=== PATIENT | male | born 1980 | race Caucasian/White ===

== ENCOUNTER 2017-07-12 14:21 | Emergency (ER) | payer OTHER ==
[2017-07-12] MEDS ORDERED: Ketorolac INJ* 60 MG/2 ML VIAL IM ONE (15:11)
--- NOTE | 2017-07-12 15:35 | RAD ---
HISTORY: Knee pain COMPARISONS: None VIEWS: 6, Frontal, lateral, axial, and oblique views of the left knee FINDINGS: BONE DENSITY: Normal. BONES: There is no displaced fracture. JOINTS: There is no arthropathy. There is no suprapatellar joint effusion or lipohemarthrosis. ALIGNMENT: There is no dislocation. SOFT TISSUES: Unremarkable. OTHER FINDINGS: None. IMPRESSION: NO ACUTE OSSEOUS INJURY. IF SYMPTOMS PERSIST, RECOMMEND REPEAT IMAGING.
[2017-07-12] MEDS ORDERED: Dexamethasone IV* 4 MG/ML 1 ML (4 MG) IM ONE (16:33)
[2017-07-12 16:59] VITALS: BP 114/72
--- NOTE | 2017-07-12 19:04 | ED ---
Dalila Kumar Edward, scribed for Henry Irwin MD on 07/12/17 at 1504 . Lower Extremity - HPI Summary HPI Summary: 37 y/o male presents to the ED c/o sudden onset, severe L knee pain starting earlier today. The pain is located just below the knee. The pt was sitting on his L leg when the pain started. The pain started as a burning cramp. It is alleviated with bending and lifting the leg. The pain is aggravated with straightening the leg. - History of Current Complaint Chief Complaint: EDExtremityLower Stated Complaint: LT LOWER EXTREMITY PAIN Time Seen by Provider: 07/12/17 14:57 Hx Obtained From: Patient Mechanism Of Injury: Other - Sitting on the knee and moved Onset of Pain: Immediate Severity Currently: Moderate Pain Intensity: 7 Pain Scale Used: 0-10 Numeric Timing: Constant Location: Is Discrete @ - Below the L knee Character Of Pain: Burning - cramp Associated Signs And Symptoms: Positive: Knee Pain Aggravating Factor(s): Other - straightening Alleviating Factor(s): Elevation - and bending - Allergies/Home Medications Allergies/Adverse Reactions: Allergies Allergy/AdvReac Type Severity Reaction Status Date / Time No Known Allergies Allergy Verified 08/31/16 09:34 PMH/Surg Hx/FS Hx/Imm Hx Previously Healthy: No Endocrine/Hematology History: Denies: Hx Anemia, Hx Unexplained Bleeding Cardiovascular History: Denies: Hx Aneurysm, Hx Angina, Hx Angioplasty, Hx Auto Implanted Cardiovert Defib, Hx Cardiac Arrest, Hx Cardiomegaly, Hx Congenital Heart Disease, Hx Congestive Heart Failure, Hx Coronary Artery Disease, Hx Embolism, Hx Hypercholesterolemia, Hx Hypotension, Hx Hypertension, Hx Pacemaker/ICD, Hx Peripheral Vascular Disease, Hx Rheumatic Fever, Hx Syncope, Hx Valvular Heart Disease, Other Cardiovascular Problems/Disorders Respiratory History: Denies: Hx Asthma, Hx Chronic Obstructive Pulmonary Disease (COPD) GI History: Denies: Other GI Disorders History: Denies: Hx Kidney Infection, Hx Kidney Stones, Hx Renal Disease, Other Problems/Disorders Musculoskeletal History: Denies: Hx Arthritis Sensory History: Denies: Hx Cataracts, Hx Eye Injury, Hx Eye Prosthesis, Hx Glaucoma, Hx Legally Blind, Hx Macular Degeneration, Hx Vision Problem, Hx Deafness, Hx Hearing Aid, Hx Hearing Problem, Other Sensory Impairments Opthamlomology History: Denies: Hx Cataracts, Hx Eye Injury, Hx Eye Prosthesis, Hx Glaucoma, Hx Legally Blind, Hx Macular Degeneration, Hx Vision Problem, Other Sensory Impairments Neurological History: Denies: Hx Headaches, Other Neuro Impairments/Disorders Psychiatric History: Reports: Hx Substance Abuse Denies: Hx Anxiety, Hx Eating Disorder, Hx of Violent Episodes Against Others - Surgical History Surgery Procedure, Year, and Place: Inguinal Hernia Repair Infectious Disease History: No Infectious Disease History: Denies: Hx Clostridium Difficile, Hx Hepatitis, Hx Human Immunodeficiency Virus (HIV), Hx of Known/Suspected MRSA, Hx Shingles, Hx Tuberculosis, Hx Known/ Suspected VRE, Hx Known/Suspected VRSA, History Other Infectious Disease, Traveled Outside the [place] in Last 30 Days - Family History Known Family History: Negative: Blood Disorder - Social History Alcohol Use: Rare Alcohol Amount: 1-2 daily Hx Substance Use: Yes Substance Use Type: Reports: Heroin Substance Use Comment - Amount & Last Used: states former user - Daily use Hx Tobacco Use: Yes Smoking Status (MU): Heavy Every Day Tobacco Smoker Type: Cigarettes Amount Used/How Often: 1/2 ppd Have You Smoked in the Last Year: Yes Review of Systems Constitutional: Negative Eyes: Negative ENT: Negative Cardiovascular: Negative Respiratory: Negative Gastrointestinal: Negative Genitourinary: Negative Positive: Arthralgia - L knee pain Skin: Negative Neurological: Negative Psychological: Normal All Other Systems Reviewed And Are Negative: Yes Physical Exam - Summary Physical Exam Summary: VITAL SIGNS: Reviewed. GENERAL: ~Patient is a well-developed and nourished male who is lying comfortable in the stretcher. ~Patient is not in any acute respiratory distress. HEAD AND FACE: No signs of trauma. ~No ecchymosis, hematomas or skull depressions. No sinus tenderness. EYES: PERRLA, EOMI x 2, No injected conjunctiva, no nystagmus. EARS: Hearing grossly intact. Ear canals and tympanic membranes are within normal limits. MOUTH: Oropharynx within normal limits. NECK: Supple, trachea is midline, no adenopathy, no JVD, no carotid bruit, no c- spine tenderness, neck with full ROM. CHEST: Symmetric, no tenderness at palpation LUNGS: Clear to auscultation bilaterally. No wheezing or crackles. CVS: Regular rate and rhythm, S1 and S2 present, no murmurs or gallops appreciated. ABDOMEN: Soft, non-tender. No signs of distention. No rebound no guarding, and no masses palpated. Bowel sounds are normal. EXTREMITIES: Tenderness @ lateral aspect of L knee. Decreased ROM secondary to pain with no deformities, no ecchymosis and no erythema NEURO: Alert and oriented x 3. No acute neurological deficits. Speech is normal and follows commands. SKIN: Dry and warm Triage Information Reviewed: Yes Vital Signs On Initial Exam: Initial Vitals Temp Pulse Resp BP Pulse Ox 98.4 F 72 18 117/76 95 07/12/17 14:33 07/12/17 14:33 07/12/17 14:33 07/12/17 14:33 07/12/17 14:33 Vital Signs Reviewed: Yes - [place] Coma Scale Coma Scale Total: 15 Diagnostics - Vital Signs Vital Signs Temp Pulse Resp BP Pulse Ox 07/12/17 14:33 98.4 F 72 18 117/76 95 - Laboratory Lab Statement: Any lab studies that have been ordered have been reviewed, and results considered in the medical decision making process. - Radiology KNEE XR Xray Interpretation: No Acute Changes - NO ACUTE OSSEOUS INJURY. IF SYMPTOMS PERSIST, RECOMMEND REPEAT IMAGING. Radiology Interpretation Completed By: Radiologist Re-Evaluation - Re-Evaluation 1 Re-Evaluation Time: 16:30 Comment: Discuss imaging and test results Lower Extremity Course/Dx - Course Assessment/Plan: 37 y/o male presents to the ED c/o sudden onset, severe L knee pain starting earlier today. The pain is located just below the knee. The pt was sitting on his L leg when the pain started. The pain started as a burning cramp. It is alleviated with bending and lifting the leg. The pain is aggravated with straightening the leg. KNEE XR SHOWS NO ACUTE OSSEOUS INJURY. IF SYMPTOMS PERSIST, RECOMMEND REPEAT IMAGING. XR knee negative for fracture discloation. I believe pt symptoms are secondary to possible meniscal or lateral ligament injury. Therefore pt was placed in a knee immobilizer and will be d/c home with f/u with orthopedics. - Diagnoses Differential Diagnosis/HQI/PQRI: Positive: Bursitis, Contusion, Dislocation, Fracture (Closed) Provider Diagnoses: Knee pain Discharge - Discharge Plan Condition: Stable Disposition: HOME Patient Education Materials: Knee Pain (ED) Referrals: [facility] – [place] PHYSICIAN REFERRAL [Outside] - 5 Days (PLEASE F/U IN 3-5 DAYS) Pipe Liu MD [Medical Doctor] - 5 Days (PLEASE F/U IN 3-5 DAYS) The documentation as recorded by the scribeDalila Edward accurately reflects the service I personally performed and the decisions made by me, Henry Irwin MD.
== END 2017-07-12 16:58 | disposition home or self-care (01) ==
LOC: ED 14:21
DX: M25.562 Pain in left knee (principal); F17.210 Nicotine dependence, cigarettes, uncomplicated
CPT/HCPCS: 96372; 99282; J1100; J1885

== ENCOUNTER 2018-03-28 13:50 | Emergency (ER) | payer SELFPAY ==
[2018-03-28 14:00] VITALS: BP 109/61
--- NOTE | 2018-03-28 14:32 | UC ---
Knee Pain HPI - HPI Summary HPI Summary: body aches headaches feverish last week, now right knee is tender and swollen no injury - History of Current Complaint Chief Complaint: UCLowerExtremity Stated Complaint: KNEE PAIN,TIRED Time Seen by Provider: 03/28/18 14:13 Hx Obtained From: Patient Onset/Duration: Gradual Onset, Lasting Days - 7-8 days Pain Intensity: 6 Pain Scale Used: 0-10 Numeric Character: Aching, Throbbing, Spasmodic Aggravating Factor(s): Movement Associated Signs And Symptoms: Positive: Swelling - Allergies/Home Medications Allergies/Adverse Reactions: Allergies Allergy/AdvReac Type Severity Reaction Status Date / Time No Known Allergies Allergy Verified 03/28/18 14:00 Home Medications: Home Medications Buprenorphine HCl/Naloxone HCl [Suboxone 8 mg-2 mg Sl Film] 1 mis SL 03/28/18 [ History] Gabapentin [Neurontin] 200 mg PO 03/28/18 [History] PMH/Surg Hx/FS Hx/Imm Hx Previously Healthy: No - opiate abuse 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 - Surgical History Surgical History: Yes Surgery Procedure, Year, and Place: Inguinal Hernia Repair - Family History Known Family History: Negative: Blood Disorder - Social History Occupation: Employed Full-time Lives: With Family Alcohol Use: Daily Alcohol Amount: 1-2 daily Substance Use Type: None Substance Use Comment - Amount & Last Used: no longer Smoking Status (MU): Light Every Day Tobacco Smoker Type: Cigarettes Amount Used/How Often: 1/2 ppd Have You Smoked in the Last Year: Yes When Did the Patient Quit Smoking/Using Tobacco: 3-4 months ago Household Exposure Type: Cigarettes - Immunization History Most Recent Influenza Vaccination: patient unable to recall Most Recent Tetanus Shot: patient unable to recall Most Recent Pneumonia Vaccination: pt unable to recall Review of Systems Constitutional: Negative Skin: Negative Eyes: Negative ENT: Negative Respiratory: Negative Cardiovascular: Negative Gastrointestinal: Negative Genitourinary: Negative Motor: Negative Neurovascular: Negative Musculoskeletal: Arthralgia - swollen tender right knee, Edema - right knee Neurological: Negative Psychological: Negative Is Patient Immunocompromised?: No All Other Systems Reviewed And Are Negative: Yes Physical Exam Triage Information Reviewed: Yes Appearance: Well-Appearing, No Pain Distress, Well-Nourished Vital Signs: Initial Vital Signs Temp 98.6 F 03/28/18 13:56 Pulse 78 03/28/18 13:56 Resp 18 03/28/18 13:56 BP 109/61 03/28/18 13:56 Pulse Ox 96 03/28/18 13:56 Vital Signs Reviewed: Yes Eye Exam: Normal Eyes: Positive: Conjunctiva Clear ENT Exam: Normal ENT: Positive: Normal ENT inspection, Hearing grossly normal, Pharynx normal. Negative: Nasal congestion, TMs normal, Trismus, Muffled voice, Hoarse voice Dental Exam: Normal Neck exam: Normal Neck: Positive: Supple, Nontender, No Lymphadenopathy Respiratory Exam: Normal Respiratory: Positive: Chest non-tender, Lungs clear, Normal breath sounds, No respiratory distress, No accessory muscle use Cardiovascular Exam: Normal Cardiovascular: Positive: RRR, No Murmur, Pulses Normal, Brisk Capillary Refill Abdominal Exam: Normal Abdomen Description: Positive: Nontender, No Organomegaly, Soft Musculoskeletal Exam: Other Musculoskeletal: Positive: Strength Intact, ROM Intact, Edema @ - right knee Neurological Exam: Normal Neurological: Positive: Alert, Muscle Tone Normal Psychological Exam: Normal Psychological: Positive: Normal Response To Family, Age Appropriate Behavior Skin Exam: Normal Knee Pain Course/Dx - Course Course Of Treatment: start ceftin, lab studies follow with pcp - Differential Dx/Diagnosis Provider Diagnoses: swollen right knee, lyme Discharge - Sign-Out/Discharge Documenting (check all that apply): Patient Departure - Discharge Plan Condition: Stable Disposition: HOME Prescriptions: Cefuroxime 500 MG(NF) 500 mg PO BID #40 tab Patient Education Materials: Lyme Disease (ED), Swollen Knee Joint (ED), Fatigue (ED) Forms: *Work Release Referrals: No Primary Care Phys,NOPCP [Primary Care Provider] - Additional Instructions: Follow with your providers at the [facility] this week - Billing Disposition and Condition Condition: STABLE Disposition: Home
[2018-03-29 13:42] LABS: ABS Basophils 0.1 10^3/ul (0-0.2); ABS Eosinophils 0.2 10^3/ul (0-0.6); ABS Lymphocytes 1.6 10^3/ul (1.0-4.8); ABS Monocytes 0.4 10^3/ul (0-0.8); ABS Neutrophils 3.6 10^3/ul (1.5-7.7); ABS Nucleated RBC 0 10^3/ul; Eosinophil % 3.7 % (0-6); Hematocrit 43 % (42-52); Hemoglobin 14.7 g/dl (14.0-18.0); Lymphocyte % 27.7 % (25-47); Mean Corpuscular HGB Conc 34 g/dl (31-36); Mean Corpuscular Hemoglobin 31 pg (27-31); Mean Corpuscular Volume 91 fL (80-94); Mean Platelet Volume 8.6 um3 (7.4-10.4); Nucleated Red Blood Cells % 0.2; Platelet Count 200 10^3/ul (150-450); Red Blood Count 4.73 10^6/ul (4.00-5.40); Red Cell Distribution Width 13 % (10.5-15); White Blood Count 5.8 10^3/ul (3.5-10.8)
[2018-03-29 14:13] LABS: EGFR Non-African American 87.8 (>60)
== END 2018-03-28 14:44 | disposition home or self-care (01) ==
LOC: UCEAST 13:50
DX: M25.461 Effusion, right knee (principal); A69.20 Lyme disease, unspecified; Z87.891 Personal history of nicotine dependence
CPT/HCPCS: 36415; 80053; 85025; 86140; 86618; 99212; G0463

== ENCOUNTER 2018-04-04 16:11 | Emergency (ER) | payer OTHER ==
[2018-04-04 16:36] VITALS: BP 106/68
--- NOTE | 2018-04-04 17:01 | UC ---
Complaint Male HPI - HPI Summary HPI Summary: This is Delaney santiago, documenting for attending, Mayela Houston MD. This patient is a 38 year old M presenting to [facility] with a chief complaint of progressively worsening burning pain with urination immediately after intercourse last evening. Pain is 8/10 upon triage. Reports redness of head of penis and blood at the opening of the urethra. States he did not experience these symptoms prior to intercourse. Benjamin green/yellow discharge, fever, chills , back pain, and abdominal pain. States he has been with current partner for 10 years. States his girlfriend is not having an symptoms currently. - History of Current Complaint Chief Complaint: UCGU Stated Complaint: BURNING URINATION Time Seen by Provider: 04/04/18 16:41 Hx Obtained From: Patient Onset/Duration: Lasting Hours Timing: Constant Pain Intensity: 8 Pain Scale Used: 0-10 Numeric Location: Penis Character: Burning Associated Signs And Symptoms: Positive: Penile Swelling - redness and bleeding. Negative: Back Pain, Fever - Allergies/Home Medications Allergies/Adverse Reactions: Allergies Allergy/AdvReac Type Severity Reaction Status Date / Time No Known Allergies Allergy Verified 04/04/18 16:37 PMH/Surg Hx/FS Hx/Imm Hx Previously Healthy: Yes - Surgical History Surgical History: Yes Surgery Procedure, Year, and Place: Inguinal Hernia Repair - Family History Known Family History: Negative: Blood Disorder - Social History Alcohol Use: Daily Alcohol Amount: 1-2 daily Substance Use Type: None Substance Use Comment - Amount & Last Used: no longer Smoking Status (MU): Light Every Day Tobacco Smoker Type: Cigarettes Amount Used/How Often: 1/2 ppd Have You Smoked in the Last Year: Yes When Did the Patient Quit Smoking/Using Tobacco: 3-4 months ago Household Exposure Type: Cigarettes - Immunization History Most Recent Influenza Vaccination: patient unable to recall Most Recent Tetanus Shot: patient unable to recall Most Recent Pneumonia Vaccination: pt unable to recall Review of Systems Constitutional: Negative Gastrointestinal: Negative Genitourinary: Dysuria, Vaginal/Penile Pain, Abnormal Bleeding Musculoskeletal: Negative All Other Systems Reviewed And Are Negative: Yes Physical Exam - Summary Physical Exam Summary: Appearance: Well-appearing, Well-nourished Skin: Warm Eyes: Normal ENT: Normal Neck: Supple, nontender Respiratory: Clear to auscultation Cardiovascular: Regular rate, regular rhythm. Normal S1, S2. Abdomen: Soft, nontender : Erythematous penile meatus without discharge Musculoskeletal: Normal, Strength/ROM Intact Neurological: Normal, A&Ox3 Psychiatric: Normal General: No acute distress Triage Information Reviewed: Yes Vital Signs: Initial Vital Signs Temp 98.4 F 04/04/18 16:33 Pulse 63 04/04/18 16:33 Resp 16 04/04/18 16:33 BP 106/68 04/04/18 16:33 Pulse Ox 99 04/04/18 16:33 Vital Signs Reviewed: Yes Complaint Male Course/Dx - Course Course Of Treatment: Sent our for GC/Chlamydia NAAT in urine, will give a dose of Azithro 1g for chalmydia coverage, pt already on Ceftin for Lyme coverage from previous visit (which would also cover for gonorrhea) - Differential Dx/Diagnosis Provider Diagnoses: Acute urethritis Discharge - Sign-Out/Discharge Documenting (check all that apply): Patient Departure - Discharge Plan Condition: Stable Disposition: HOME Patient Education Materials: Nonspecific Urethritis in Men (ED) Additional Instructions: follow up with PCP within 1 week - Billing Disposition and Condition Condition: STABLE Disposition: Home
[2018-04-04] MEDS ORDERED: Azithromycin TAB* 250 MG PO ONE (17:39)
== END 2018-04-04 18:10 | disposition home or self-care (01) ==
LOC: UCEAST 16:11
DX: N34.2 Other urethritis (principal); F17.210 Nicotine dependence, cigarettes, uncomplicated
CPT/HCPCS: 81003; 87491; 87591; 99212; A9270-GY; G0463

== ENCOUNTER 2018-10-16 11:05 | Emergency (ER) | payer OTHER ==
[2018-10-16 11:17] VITALS: BP 114/68
[2018-10-16 11:59] LABS: Influenza A Molecular POSITIVE (Negative)
--- NOTE | 2018-10-16 12:02 | UC ---
FLU HPI - HPI Summary HPI Summary: 38 y/o male presents to the urgent care c/o influenza like symptoms for the past 3 days. Pt states he stated w/ clear nasal discharge about 1 week ago. But symptoms with body aches, fever, MATTSON, dry cough and fatigue about 2-3 days ago. Pt has been taking OTC medication w/o any improvement. Pt denies dizziness. SOB , chest pain, abdominal pain, N/V/D. - History of Current Complaint Chief Complaint: UCGeneralIllness Stated Complaint: SORE THROAT Time Seen by Provider: 10/16/18 11:59 Hx Obtained From: Patient Onset/Duration: Gradual Onset Severity Currently: Mild Severity Initially: Moderate Pain Intensity: 7 Pain Scale Used: 0-10 Numeric Associated Signs & Symptoms: Positive: Fever, Myalgia, Cough - dry, Sore Throat , Nasal Congestion, Headache. Negative: Vomiting, Diarrhea - Risk Factors Influenza Risk Factors: Negative - Allergy/Home Medications Allergies/Adverse Reactions: Allergies Allergy/AdvReac Type Severity Reaction Status Date / Time No Known Allergies Allergy Verified 10/16/18 11:17 PMH/Surg Hx/FS Hx/Imm Hx Previously Healthy: Yes - Pt denies PMHX - Surgical History Surgical History: Yes Surgery Procedure, Year, and Place: Inguinal Hernia Repair - Family History Known Family History: Positive: None - Pt denies FMHX Negative: Blood Disorder - Social History Occupation: Employed Full-time Lives: With Family Alcohol Use: Daily Alcohol Amount: 1-2 daily Substance Use Type: None Substance Use Comment - Amount & Last Used: no longer Smoking Status (MU): Light Every Day Tobacco Smoker Type: Cigarettes Amount Used/How Often: 1/2 ppd Have You Smoked in the Last Year: Yes When Did the Patient Quit Smoking/Using Tobacco: 3-4 months ago Household Exposure Type: Cigarettes - Immunization History Most Recent Influenza Vaccination: patient unable to recall Most Recent Tetanus Shot: patient unable to recall Most Recent Pneumonia Vaccination: pt unable to recall Review of Systems All Other Systems Reviewed And Are Negative: Yes Constitutional: Positive: Fever, Chills, Fatigue, Other - body aches Skin: Positive: Negative Eyes: Positive: Negative ENT: Positive: Sore Throat, Nasal Discharge - clear, Sinus Congestion Respiratory: Positive: Cough - dry Cardiovascular: Positive: Negative Gastrointestinal: Positive: Negative Genitourinary: Positive: Negative Motor: Positive: Negative Neurovascular: Positive: Negative Musculoskeletal: Positive: Myalgia Neurological: Positive: Headache Psychological: Positive: Negative Is Patient Immunocompromised?: No Physical Exam - Summary Physical Exam Summary: VITAL SIGNS: Reviewed. GENERAL: Patient is a well developed and nourished male who is sitting comfortable in the examining table. Patient is not in any acute respiratory distress. HEAD AND FACE: No signs of trauma. No ecchymosis, hematomas or skull depressions. No sinus tenderness. EYES: PERRLA, EOMI x 2, No injected conjunctiva, no nystagmus. No photophobia. EARS: Hearing grossly intact. Ear canals and tympanic membranes are within normal limits. Nose: edematous and erythematous nasal mucosa w/ clear nasal discharge. MOUTH: Positive no erythema, no tonsillar enlargement. Uvula in midline. NECK: Supple, trachea is midline, Positive anterior cervical lymphadenopathy, no JVD, no carotid bruit, no c-spine tenderness, neck with full ROM. No meningeal signs, no Kernig's or brudzinskis signs. CHEST: Symmetric, no tenderness at palpation LUNGS: Clear to auscultation bilaterally. No wheezing or crackles. CVS: Regular rate and rhythm, S1 and S2 present, no murmurs or gallops appreciated. ABDOMEN: Soft, non-tender. No signs of distention. No rebound no guarding, and no masses palpated. Bowel sounds are normal. EXTREMITIES: FROM in all major joints, no edema, no cyanosis or clubbing. NEURO: Alert and oriented x 3. No acute neurological deficits. Speech is normal and follows commands. SKIN: Dry and warm Triage Information Reviewed: Yes Vital Signs: Initial Vital Signs Temp 99.3 F 10/16/18 11:15 Pulse 62 10/16/18 11:15 Resp 17 10/16/18 11:15 BP 114/68 10/16/18 11:15 Pulse Ox 100 10/16/18 11:15 Flu Course/Dx - Course Course Of Treatment: 38 y/o male presents to the urgent care c/o influenza like symptoms for the past 3 days. Pt states he stated w/ clear nasal discharge about 1 week ago. But symptoms with body aches, fever, MATTSON, dry cough and fatigue about 2-3 days ago. Pt has been taking OTC medication w/o any improvement. Pt denies dizziness. SOB, chest pain, abdominal pain, N/V/D. Hx obtained. Pt with URI on examination. Rapid strep ordered, result: negative.Influenza A&B ordered: result: Influenza A positive.Pt Rx Tamiflu and ibuprofen PO to alleviates symptoms. Advised on hand washing and wear a mask to avoid spreading. Pt advised to rest, increase fluid intake, eat well and avoid strenuous exercise. If symptoms do not improve or worsen advised to return to the urgent care or f/u with her PCP for further evaluation and treatment. d/c instructions explained. Pt understood and agreed w/ plan of care - Differential Dx/Diagnosis Differential Diagnosis/HQI/PQRI: Bronchitis, Influenza, Upper Respiratory Infection Provider Diagnosis: Influenza A Discharge - Sign-Out/Discharge Documenting (check all that apply): Patient Departure - d/c home All imaging exams completed and their final reports reviewed: No Studies - Discharge Plan Condition: Stable Disposition: HOME Prescriptions: Ibuprofen TAB* [Motrin TAB* 600 MG] 600 mg PO Q6H PRN #30 tab PRN Reason: Pain Oseltamivir CAP* [Tamiflu CAP*] 75 mg PO BID #10 cap Patient Education Materials: Influenza (ED) Forms: *Work Release Referrals: Akilah Bragg MD [Primary Care Provider] - 3 Days Additional Instructions: 1- Please take the full course of the antiviral to avoid resistance. Encourage hand washing and wear a mask to avoid spreading. 2-Please continue taking Ibuprofen PO q6-8hrs prn as instructed after meals to alleviate fever, and sore throat. Increase fluid intake, eat well, rest and avoid strenuous exercise 3-If symptoms do not improve or worsen please return to the urgent care or f/u with your PCP in 3 days for further evaluation and treatment. - Billing Disposition and Condition Condition: STABLE Disposition: Home
== END 2018-10-16 12:23 | disposition home or self-care (01) ==
LOC: UCEAST 11:05
DX: J10.1 Influenza due to other identified influenza virus with other respiratory manifestations (principal); F17.210 Nicotine dependence, cigarettes, uncomplicated
CPT/HCPCS: 87651; 99212; G0463

== ENCOUNTER 2018-10-21 08:41 | Emergency (ER) | payer OTHER ==
--- NOTE | 2018-10-21 10:10 | UC ---
Respiratory Complaint HPI - HPI Summary HPI Summary: 38 y/o male presents to the urgent care c/o productive cough w/ fatigue, body aches and low grade subjective fever at home for the past week. Pt reports he was seen here at the clinic on 10/16/2018 and Dx with influenza A and Rx Tamiflu. He already finished his medication and feels his cough has worsen, now with green sputum and mild wheezing. Pt feels very fatigue specially in the morning. He has been drinking fluid, but has decrease appetite. Pt denies dizziness, SOB, chest pain, abdominal pain, N/V/D. - History of Current Complaint Chief Complaint: UCRespiratory Stated Complaint: CHEST CONGESTION Time Seen by Provider: 10/21/18 10:10 Onset/Duration: Gradual Onset, Lasting Weeks - 10 days, Still Present Timing: Constant Severity Initially: Mild Severity Currently: Moderate Pain Intensity: 6 - body aches Pain Scale Used: 0-10 Numeric Character: Cough: Productive, Sputum Description: - green Aggravating Factors: Recumbent Position Alleviating Factors: OTC Meds, Other - tamiflu since Dx with Influenza A at the beginning of symptoms Associated Signs And Symptoms: Positive: Fever - low grade subjective at home, Chills, Wheezing, URI, Nasal Congestion Related History: Similar Episode/Dx as: - Influenza A - Risk Factors Pulmonary Embolism Risk Factors: Negative Cardiac Risk Factors: Negative Pseudomonas Risk Factors: Negative Tuberculosis Risk Factors: Negative - Allergies/Home Medications Allergies/Adverse Reactions: Allergies Allergy/AdvReac Type Severity Reaction Status Date / Time No Known Allergies Allergy Verified 10/21/18 09:02 PMH/Surg Hx/FS Hx/Imm Hx Previously Healthy: Yes - Pt denies PMHX - Surgical History Surgical History: Yes Surgery Procedure, Year, and Place: Inguinal Hernia Repair - Family History Known Family History: Positive: None - Pt denies FMHX Negative: Blood Disorder - Social History Occupation: Employed Full-time Lives: With Family Alcohol Use: Daily Alcohol Amount: 1-2 daily Substance Use Type: None Substance Use Comment - Amount & Last Used: no longer Smoking Status (MU): Light Every Day Tobacco Smoker Type: Cigarettes Amount Used/How Often: 1/2 ppd Have You Smoked in the Last Year: Yes When Did the Patient Quit Smoking/Using Tobacco: 3-4 months ago Household Exposure Type: Cigarettes - Immunization History Most Recent Influenza Vaccination: patient unable to recall Most Recent Tetanus Shot: patient unable to recall Most Recent Pneumonia Vaccination: pt unable to recall Review of Systems All Other Systems Reviewed And Are Negative: Yes Constitutional: Positive: Fever, Chills, Fatigue, Other - body aches Skin: Positive: Negative Eyes: Positive: Negative ENT: Positive: Nasal Discharge - yellowish Respiratory: Positive: Cough - productive with green phlegm, Other - wheezing Cardiovascular: Positive: Negative Gastrointestinal: Positive: Negative Genitourinary: Positive: Negative Motor: Positive: Negative Neurovascular: Positive: Negative Musculoskeletal: Positive: Myalgia Neurological: Positive: Negative Psychological: Positive: Negative Is Patient Immunocompromised?: No Physical Exam - Summary Physical Exam Summary: Vital Signs Reviewed: Yes General: well developed, well nourished male sitting in the examining table w/o any apparent distress Eyes: Positive: Conjunctiva Clear - PERRLA, EOMI, fundi grossly normal ENT: Positive: Normal ENT inspection, Hearing grossly normal, Pharynx normal, Nasal congestion - edematous and erythematous nasal mucosa, Nasal drainage - yellowish drainage, TMs normal. Negative: Tonsillar swelling, Tonsillar exudate Neck: Positive: Supple, Nontender, No Lymphadenopathy Respiratory: no orthopnea or dyspnea. Able to speak in full sentences, no retractions or accessory muscle use, no tripod position, stridor, or head bobbing. Positive breath sounds bilaterally. scattered wheezing and rhonchi on b/L lungs, no crackles or rales. Cardiovascular: Positive: RRR, No Murmur, Pulses Normal, Brisk Capillary Refill Abdomen Description: Positive: Nontender, No Organomegaly, Soft. Negative: CVA Tenderness (R), CVA Tenderness (L) Bowel Sounds: Positive: Present Musculoskeletal Exam: Normal Musculoskeletal: Positive: Strength Intact, ROM Intact, No Edema Neurological Exam: Normal Psychological Exam: Normal Skin Exam: Normal Triage Information Reviewed: Yes Vital Signs: Initial Vital Signs Temp 98.8 F 10/21/18 08:58 Pulse 56 10/21/18 08:58 Resp 16 10/21/18 08:58 BP 109/73 10/21/18 08:58 Pulse Ox 100 10/21/18 08:58 UC Diagnostic Evaluation - Laboratory O2 Sat by Pulse Oximetry: 100 Respiratory Course/Dx - Course Course Of Treatment: 38 y/o male presents to the urgent care c/o productive cough w/ fatigue, body aches and low grade subjective fever at home for the past week. Pt reports,he was seen here at the clinic on 10/16/2018 and Dx with influenza A and Rx Tamiflu. He already finished his medication and feels his cough has worsen, now with green sputum and mild wheezing. Pt feels very fatigue specially in the morning. He has been drinking fluid, but has decrease appetite. Pt denies dizziness, SOB, chest pain, abdominal pain, N/V/D. Hx obtained. Pt w/scattered wheezing and rhonchi on b/L lungs, no crackles or rales on examination. O2SAt:100%. Chest X-ray ordered to r/o pneumonia. Impression: no cardiopulmonary disease observed as per radiologist. Pt given Duoneb Treatment to alleviate symptoms. Pt tolerated well treatment and lungs improved,and wheezing resolved. Patient will be Tx for acute bronchitis. PT prescribed Z-brennen PO, albuterol inhaler and Tessalon Tabs to alleviate symptoms as directed below. The patient was recommended to increase fluid intake. Take medications as recommended. Pt advised to returned to the clinic or f/u w/ PCP if symptoms do not improve. All D/C instructions explained. Patient understood and agree w/ plan of care. Pt left clinic hemodynamically stable , A&OX3 - Differential Dx/Diagnosis Differential Diagnosis/HQI/PQRI: Asthma, Bronchitis, Influenza, Laryngitis, Sinusitis Provider Diagnosis: Acute bronchitis, Wheezing Discharge - Sign-Out/Discharge Documenting (check all that apply): Patient Departure - d/c home All imaging exams completed and their final reports reviewed: Yes - Discharge Plan Condition: Stable Disposition: HOME Prescriptions: Albuterol HFA INHALER* [Ventolin HFA Inhaler*] 1 - 2 puff INH Q6H PRN #1 mdi PRN Reason: bronchospasm Azithromyxin BRENNEN (NF) [Z-Brennen (Zithromax) 250 mg tabs #6] 2 tab PO .TODAY, THEN 1 DAILY #6 tab Benzonatate CAP* [Tessalon 100 MG CAP*] 100 mg PO TID PRN #21 cap PRN Reason: Cough Patient Education Materials: Acute Bronchitis (ED) Forms: *Work Release Referrals: Akilah Bragg MD [Primary Care Provider] - 3 Days Additional Instructions: 1-Please take full course of antibiotic to avoid resistance. 2-Take Tessalon PO tabs as directed and use the albuterol inhaler to alleviate cough. Increase fluid intake, rest and eat well. 3- If symptoms do not improve or worsen or your develop SOB with fever and severe wheezing please go immediately to the ER further evaluation and treatment. 4- F/u with your PCP in 3 days for further management ir not improvement of symptoms - Billing Disposition and Condition Condition: STABLE Disposition: Home - Attestation Statements Provider Attestation: I was available for consult. This patient was seen by the MARIA ELENA. The patient was not presented to, seen by, or examined by me. -Ryne
[2018-10-21] MEDS ORDERED: Albuterol/Ipratropium NEB.SOL* Albuterol 2.5 MG/Ipratropium 0.5 MG 3 ML INH ONE (10:27)
[2018-10-21 11:27] VITALS: BP 111/68
== END 2018-10-21 11:26 | disposition home or self-care (01) ==
LOC: UCEAST 08:41
DX: J20.9 Acute bronchitis, unspecified (principal); R06.2 Wheezing; R09.81 Nasal congestion; R09.89 Other specified symptoms and signs involving the circulatory and respiratory systems; Z87.891 Personal history of nicotine dependence
CPT/HCPCS: 71046; 99212; A9270-GY; G0463